=== PATIENT | female | born 1995 | race African-American/Black ===

== ENCOUNTER 2018-05-12 10:56 | Emergency (ER) | payer BC ==
[~2018-05-12] VITALS: Ht 160 cm; Wt 104.3 kg
[2018-05-12 11:30] VITALS: BP 154/84
[2018-05-12] MEDS ORDERED: FLAGYL500 MG PO (16:00)
== END 2018-05-12 11:31 | disposition home or self-care (01) ==
LOC: M.ERS 10:56
DX: A59.9 Trichomoniasis, unspecified (principal)

== ENCOUNTER 2018-09-16 17:45 | Emergency (ER) | payer BC ==
[~2018-09-16] VITALS: Ht 160 cm; Wt 97.5 kg
[~2018-09-16 17:45] MED LIST: FLAGYL500 MG PO
[2018-09-16 18:54] LABS: HEMOGLOBIN 9.2 gm/dL (12.0-15.0); MPV 8.6 fl. (7.2-11.1); WBC 7.6 thou/uL (4.0-11.0)
[2018-09-16 18:56] LABS: HEMATOCRIT 29.2 % (37.0-47.0); MCH 19.8 pg (26.0-34.0); MCHC 31.4 g/dL (28.0-37.0); NUCLEATED RBCS 0 /100WBC; PLATELET COUNT* 300 thou/uL (150-400); RBC 4.64 mil/uL (4.20-5.00); RDW-CV 19.7 % (10.5-14.5)
[2018-09-16 19:01] LABS: CALCIUM 8.7 mg/dL (8.5-10.1); CREATININE 0.7 mg/dL (0.6-1.3); POTASSIUM 3.5 mmol/L (3.5-5.1)
[2018-09-16 19:06] LABS: ALBUMIN 3.5 g/dL (3.4-5.0); TOTAL BILIRUBIN 0.8 mg/dL (<0.1-1.0); TOTAL PROTEIN 7.7 g/dL (6.4-8.2)
[2018-09-16 19:31] LABS: ABSOLUTE LYMPHOCYTES 3.1 thou/uL (0.8-5.3); ABSOLUTE MONOCYTES 0.3 thou/uL (0.0-1.2); ABSOLUTE NEUTROPHILS 4.2 thou/uL (1.6-8.1); PLATELET ESTIMATE ADEQUATE
[2018-09-16 19:32] LABS: ANISOCYTOSIS 2+; MICROCYTES 2+; TARGET CELLS Occasional
[2018-09-16 19:33] LABS: HYPOCHROMASIA 3+
[2018-09-16 19:47] LABS: URINE BILIRUBIN NEGATIVE (Negative); URINE BLOOD 3+ (Negative); URINE COLOR YELLOW; URINE GLUCOSE-RANDOM NEGATIVE (Negative); URINE KETONES NEGATIVE (Negative); URINE LEUKOCYTES TRACE (Negative); URINE NITRITE NEGATIVE (Negative); URINE PROTEIN 1+ (Negative); URINE SPECIFIC GRAVITY 1.025 (1.005-1.030); URINE UROBILINOGEN 0.2 E.U./dl (0.2-1.0)
[2018-09-16 19:48] LABS: URINE CLARITY HAZY
[2018-09-16 19:57] LABS: BACTERIA >30 Many /HPF (None Seen); CASTS None Seen /LPF (None Seen); CRYSTALS None Seen /LPF (None Seen); MUCUS 0-3 Light strn/LPF (None Seen); SQUAMOUS >10 Many /LPF (0-3); URINE WBC 6-15 Few /HPF (0-5)
[2018-09-16] MEDS ORDERED: MACROBID 100 M100 M2 PO (20:12)
[2018-09-16] MEDS ORDERED: PYRIDIUM100 M1 PO (20:13)
[2018-09-16 20:29] VITALS: BP 142/77
== END 2018-09-16 20:31 | disposition home or self-care (01) ==
LOC: M.ERS 17:45
PROVIDERS: Nurse Practitioner Family
DX: D50.9 Iron deficiency anemia, unspecified (principal); N39.0 Urinary tract infection, site not specified; Z32.02 Encounter for pregnancy test, result negative; Z90.89 Acquired absence of other organs

== ENCOUNTER 2019-09-29 17:13 | Emergency (ER) | payer BC ==
[~2019-09-29] VITALS: Ht 160 cm; Wt 131.1 kg
[~2019-09-29 17:13] MED LIST changes: +MACROBID 100 M100 M2 PO; +PYRIDIUM100 M1 PO
[2019-09-29 17:16] VITALS: BP 125/71
[2019-09-29] MEDS ORDERED: AMOXICILLIN 50500 MG PO (17:29)
[2019-09-29] MEDS ORDERED: NAPROSYN500 MG PO (17:30)
== END 2019-09-29 17:37 | disposition home or self-care (01) ==
LOC: M.ERS 17:13
DX: H66.92 Otitis media, unspecified, left ear (principal); E66.9 Obesity, unspecified; Z68.43 Body mass index [BMI] 50.0-59.9, adult

== ENCOUNTER 2020-01-04 07:52 | Emergency (ER) | payer BC ==
[~2020-01-04] VITALS: Ht 160 cm; Wt 128.4 kg
[~2020-01-04 07:52] MED LIST changes: +AMOXICILLIN 50500 MG PO; +NAPROSYN500 MG PO
[2020-01-04 08:46] LABS: HEMATOCRIT 31.3 % (37.0-47.0); HEMOGLOBIN 10.2 gm/dL (12.0-15.0); WBC 6.4 thou/uL (4.0-11.0)
[2020-01-04 08:49] LABS: URINE BILIRUBIN NEGATIVE (Negative); URINE BLOOD 3+ (Negative); URINE CLARITY CLEAR; URINE COLOR YELLOW; URINE GLUCOSE-RANDOM NEGATIVE (Negative); URINE KETONES NEGATIVE (Negative); URINE LEUKOCYTES-REFLEX NEGATIVE (Negative); URINE NITRITE-REFLEX NEGATIVE (Negative); URINE PROTEIN 1+ (Negative); URINE SPECIFIC GRAVITY 1.025 (1.005-1.030); URINE UROBILINOGEN 0.2 E.U./dl (0.2-1.0)
[2020-01-04 08:49] LABS: MPV 8.6 fl. (7.2-11.1)
[2020-01-04 08:51] LABS: MCH 19.9 pg (26.0-34.0); MCHC 32.5 g/dL (28.0-37.0); MCV 61.1 fL (80.0-100.0); NUCLEATED RBCS 0 /100WBC; PLATELET COUNT* 332 thou/uL (150-400); RBC 5.12 mil/uL (4.20-5.00); RDW-CV 21.3 % (10.5-14.5)
[2020-01-04 08:52] LABS: BACTERIA-REFLEX 1-9 Few /HPF (None Seen); MUCUS None Seen strn/LPF (None Seen); SQUAMOUS 4-10 Moderate /LPF (0-3); URINE RBC >20 Many /HPF (0-2); URINE WBC-REFLEX 0-5 Rare /HPF (0-5)
[2020-01-04 08:52] LABS: CALCIUM 8.6 mg/dL (8.5-10.1); CREATININE 0.7 mg/dL (0.6-1.3); POTASSIUM 4.2 mmol/L (3.5-5.1)
[2020-01-04 08:53] LABS: CASTS None Seen /LPF (None Seen); CRYSTALS None Seen /LPF (None Seen)
[2020-01-04 08:57] LABS: ALBUMIN 3.3 g/dL (3.4-5.0); TOTAL BILIRUBIN 0.7 mg/dL (<0.1-1.0); TOTAL PROTEIN 7.7 g/dL (6.4-8.2)
[2020-01-04] MEDS ORDERED: NATAZIA 28 TAB1 EACH PO (09:10)
[2020-01-04 09:24] VITALS: BP 112/79
[2020-01-04 10:18] LABS: ABSOLUTE EOSINOPHILS 0.2 thou/uL (0.0-0.7); ABSOLUTE LYMPHOCYTES 2.1 thou/uL (0.8-5.3); ABSOLUTE MONOCYTES 0.1 thou/uL (0.0-1.2); ANISOCYTOSIS 2+; HYPOCHROMASIA 2+; MICROCYTES 3+; PLATELET ESTIMATE ADEQUATE; TARGET CELLS 2+
== END 2020-01-04 09:25 | disposition home or self-care (01) ==
LOC: M.ERS 07:52
PROVIDERS: Personal Emergency Response Attendant
DX: N93.8 Other specified abnormal uterine and vaginal bleeding (principal)

== ENCOUNTER 2020-01-05 04:37 | Emergency (ER) | payer BC ==
[~2020-01-05] VITALS: Ht 160 cm; Wt 130.6 kg
[~2020-01-05 04:37] MED LIST changes: +NATAZIA 28 TAB1 EACH PO
[2020-01-05 05:20] LABS: CALCIUM 8.6 mg/dL (8.5-10.1); CREATININE 0.8 mg/dL (0.6-1.3); POTASSIUM 3.4 mmol/L (3.5-5.1)
[2020-01-05 05:22] LABS: ALBUMIN 3.6 g/dL (3.4-5.0); TOTAL BILIRUBIN 1.3 mg/dL (<0.1-1.0); TOTAL PROTEIN 8.2 g/dL (6.4-8.2)
[2020-01-05 05:30] LABS: HEMOGLOBIN 10.7 gm/dL (12.0-15.0)
[2020-01-05 05:32] LABS: MCHC 32.2 g/dL (28.0-37.0); MPV 9.1 fl. (7.2-11.1); NUCLEATED RBCS 0 /100WBC; PLATELET COUNT* 301 thou/uL (150-400); RBC 5.33 mil/uL (4.20-5.00); RDW-CV 21.6 % (10.5-14.5); WBC 7.3 thou/uL (4.0-11.0)
[2020-01-05 05:56] VITALS: BP 134/86
[2020-01-05 06:42] LABS: ABSOLUTE LYMPHOCYTES 0.7 thou/uL (0.8-5.3); ABSOLUTE MONOCYTES 0.4 thou/uL (0.0-1.2); ABSOLUTE NEUTROPHILS 6.1 thou/uL (1.6-8.1); HYPOCHROMASIA 2+; PLATELET ESTIMATE ADEQUATE
[2020-01-05 06:43] LABS: ANISOCYTOSIS 1+; MICROCYTES 2+; POIKILOCYTOSIS 2+; TARGET CELLS 1+
== END 2020-01-05 05:58 | disposition home or self-care (01) ==
LOC: M.ERS 04:37
PROVIDERS: Family Medicine
DX: F41.0 Panic disorder [episodic paroxysmal anxiety] (principal)